=== PATIENT | male | born 1935 | race Caucasian/White ===

== ENCOUNTER 2021-11-15 08:45 | Inpatient (IN) | payer MEDICARE, OTHER ==
[2021-11-15 10:50] LABS: #Lymphocytes 0.7 thou/uL (1.20-3.40); #Monocytes 1.2 thou/uL (0.11-0.59); #Neutrophils 8.3 thou/uL (1.40-6.50); %Basophils 0.1 % (0.0-1.0); %Eosinophils 0.3 % (0.0-10.0); %Lymphocytes 6.4 % (21.0-51.0); %Monocytes 11.5 % (0.0-10.0); %Neutrophils 81.8 % (42.0-75.0); Hemoglobin 13.7 g/dL (14.0-18.0); Mean Corpuscular HGB CONC 31.4 g/dL (32.0-36.0); Mean Corpuscular Hemoglobin 30.7 pg (27.0-31.0); Mean Corpuscular Volume 97.7 fL (78.0-98.0); Platelet Count 181 thou/uL (130-400); RBC Distribution Width 11.9 % (11.5-14.5); Red Blood Cell (RBC) Count 4.47 mill/uL (4.70-6.10); White Blood Cell (WBC) Count 10.1 thou/uL (4.8-10.8)
[2021-11-15 11:05] LABS: INR-International Normal Ratio 2.3; Prothrombin Time 25.8 sec (12.0-14.7)
[2021-11-15 11:06] LABS: PTT 53.6 sec (22.9-36.1)
[2021-11-15 11:13] LABS: ALT (SGPT) 18 U/L (8-55); AST (SGOT) 55 U/L (5-34); Albumin 4.1 g/dL (3.4-4.8); Alkaline Phosphatase 88 U/L (40-110); Anion Gap 31 mmol/L (10-20); BUN (Urea Nitrogen) 27 mg/dL (8.4-25.7); Bilirubin, Total 0.4 mg/dL (0.2-1.2); CK (CPK) 1817 U/L (30-200); Calc. Creatinine Clearance 0 mL/min (70-130); Calcium 9.9 mg/dL (7.8-10.44); Carbon Dioxide 11 mmol/L (23-31); Chloride 100 mmol/L (98-107); Globulin 3.4 g/dL (2.4-3.5); Glucose 151 mg/dL (83-110); Potassium 4.8 mmol/L (3.5-5.1); Protein, Total 7.5 g/dL (5.8-8.1); Sodium 137 mmol/L (136-145)
[2021-11-15 11:38] LABS: CKMB 33.1 ng/mL (0-6.6)
[2021-11-15 12:32] LABS: Bacteria/HPF 3+ HPF (None Seen); Bilirubin Negative (Negative); Blood, Urine 3+ (Negative); Clarity Turbid (Clear); Glucose, Urine (Dipstick) 50 mg/dL (Negative); Ketone, Urine Negative (Negative); Leukocyte Negative Leu/uL (Negative); Nitrite Negative (Negative); Protein, Urine (Dipstick) 100 mg/dL (Neg-Trace); RBC/HPF 0-3 HPF (0-3); Specific Gravity, Urine 1.021 (1.002-1.036); pH, Urine 5.5 (5.0-9.0)
[2021-11-15] MEDS ORDERED: HYDROcodone/Acetaminophen 5/325 mg Tablet ONE (13:40)
[2021-11-15] MEDS ORDERED: cefTRIAXone\\ROCEPHIN 2 GM VIAL ONE (13:40)
[2021-11-15 17:10] LABS: Troponin I 0.081 ng/mL (< 0.028)
[2021-11-15 20:16] LABS: SARS-CoV-2 NAA Rapid Test DETECTED (NotDetected)
[2021-11-15] MEDS ORDERED: Dextrose 50% Abboject 50 ML SYRINGE SLOW IVP PRN (21:26)
[2021-11-15] MEDS ORDERED: Senokot S 8.6-50 MG TAB PO PRN (21:26)
[2021-11-15] MEDS ORDERED: Dextrose 5% in Water 1,000 ML IV PRN (21:26)
[2021-11-15] MEDS ORDERED: HYDROcodone/Acetaminophen 10/325 mg Tablet PO PRN (21:26)
[2021-11-15] MEDS ORDERED: GUAIFENESIN SF SOLN 200 MG/10 ML UDCUP PO PRN (21:33)
[2021-11-15] MEDS ORDERED: hydrALAZINE 20 MG/ML VIAL SLOW IVP PRN (21:33)
[2021-11-15] MEDS ORDERED: Sodium Bicarbonate 50 MEQ in Sodium Chloride 0.45% 1,000 ML IV SCH (22:15)
[2021-11-16 00:52] VITALS: BMI 23.8
[2021-11-16 06:22] LABS: ALT (SGPT) 18 U/L (8-55); AST (SGOT) 66 U/L (5-34); Albumin 3.2 g/dL (3.4-4.8); Alkaline Phosphatase 70 U/L (40-110); Anion Gap 25 mmol/L (10-20); BUN (Urea Nitrogen) 39 mg/dL (8.4-25.7); Bilirubin, Total 0.3 mg/dL (0.2-1.2); Calc. Creatinine Clearance 20 mL/min (70-130); Calcium 8.7 mg/dL (7.8-10.44); Carbon Dioxide 12 mmol/L (23-31); Chloride 105 mmol/L (98-107); Globulin 3.2 g/dL (2.4-3.5); Glucose 117 mg/dL (83-110); Potassium 4.9 mmol/L (3.5-5.1); Protein, Total 6.4 g/dL (5.8-8.1); Sodium 137 mmol/L (136-145)
[2021-11-16] MEDS ORDERED: Sodium Bicarbonate 150 MEQ in Dextrose 5% in Water 1,000 ML IV SCH (08:15)
[2021-11-16 08:57] LABS: Hemoglobin 13.6 g/dL (14.0-18.0); Mean Corpuscular HGB CONC 32.3 g/dL (32.0-36.0); Mean Corpuscular Volume 99.2 fL (78.0-98.0); Mean Platelet Volume 8.6 fL (7.4-10.4); Platelet Count 158 thou/uL (130-400); RBC Distribution Width 12.3 % (11.5-14.5); Red Blood Cell (RBC) Count 4.25 mill/uL (4.70-6.10); White Blood Cell (WBC) Count 10.7 thou/uL (4.8-10.8)
[2021-11-16] MEDS ORDERED: Cefepime 1 GM in Sodium Chloride 0.9% 100 ML IVPB SCH (09:00)
[2021-11-16] MEDS: Dexamethasone 1 MG TAB PO SCH ×2 (09:01→17:28)
[2021-11-16] MEDS: Famotidine 20 MG TAB PO SCH (09:01)
[2021-11-16] MEDS: Zinc Sulfate 220 MG CAP PO SCH (09:02)
[2021-11-16 09:50] LABS: INR-International Normal Ratio 2.9; Prothrombin Time 31.1 sec (12.0-14.7)
[2021-11-16 09:56] LABS: Albumin 3.1 g/dL (3.4-4.8); Anion Gap 28 mmol/L (10-20); BUN (Urea Nitrogen) 40 mg/dL (8.4-25.7); BUN/Creatinine Ratio 12.78; CK (CPK) 1521 U/L (30-200); Calc. Creatinine Clearance 19 mL/min (70-130); Calcium 8.8 mg/dL (7.8-10.44); Carbon Dioxide 10 mmol/L (23-31); Chloride 102 mmol/L (98-107); Glucose 141 mg/dL (83-110); Potassium 5.2 mmol/L (3.5-5.1); Sodium 135 mmol/L (136-145)
[2021-11-16 10:11] LABS: Creatinine, Urine 116.29 mg/dL (63-166)
[2021-11-16 10:23] LABS: Band 7 % (5-11); Burr Cells SLIGHT = 2-5 cells (100X) (0-1/hpf); Lymphocytes 14 % (21-51); MDiff Complete? YES; Monocytes 3 % (0-10); Neutrophil 76 % (42-75); Platelet Morphology Comment Appears Adequate; Polychromasia SLIGHT = 2-3 cells (100X) (0-2/hpf)
[2021-11-16] MEDS: cefTRIAXone\\ROCEPHIN 1 GM in Sodium Chloride 0.9% 100 ML IVPB SCH (12:49)
[2021-11-16] MEDS: Sodium Bicarbonate 150 MEQ in Dextrose 5% in Water 1,000 ML IV SCH (17:29)
[2021-11-16 19:07] LABS: Anion Gap 26 mmol/L (10-20); BUN (Urea Nitrogen) 45 mg/dL (8.4-25.7); CK (CPK) 1216 U/L (30-200); Calc. Creatinine Clearance 17 mL/min (70-130); Carbon Dioxide 11 mmol/L (23-31); Chloride 100 mmol/L (98-107); Glucose 274 mg/dL (83-110); Potassium 4.8 mmol/L (3.5-5.1); Sodium 132 mmol/L (136-145)
[2021-11-16] MEDS: Finasteride 5 MG TAB PO SCH (21:09)
[2021-11-16] MEDS: Atorvastatin Calcium 20 MG TAB PO SCH (21:09)
[2021-11-17 06:23] LABS: Prothrombin Time 42.1 sec (12.0-14.7)
[2021-11-17 06:26] LABS: INR-International Normal Ratio 4.3
[2021-11-17 06:39] LABS: Albumin 2.7 g/dL (3.4-4.8); Anion Gap 19 mmol/L (10-20); BUN (Urea Nitrogen) 50 mg/dL (8.4-25.7); BUN/Creatinine Ratio 12.99; CK (CPK) 996 U/L (30-200); Calc. Creatinine Clearance 16 mL/min (70-130); Calcium 7.9 mg/dL (7.8-10.44); Carbon Dioxide 18 mmol/L (23-31); Chloride 98 mmol/L (98-107); Glucose 288 mg/dL (83-110); Phosphorus 4.3 mg/dL (2.3-4.7); Potassium 4.2 mmol/L (3.5-5.1); Sodium 131 mmol/L (136-145)
[2021-11-17] MEDS ORDERED: Simvastatin 40 MG TAB PO SCH (09:00)
[2021-11-17] MEDS ORDERED: Sodium Chloride 0.9% 500 ML IV SCH (10:15)
[2021-11-17] MEDS: Sodium Bicarbonate 150 MEQ in Dextrose 5% in Water 1,000 ML IV SCH ×3 (10:19→21:58)
[2021-11-17] MEDS: Zinc Sulfate 220 MG CAP PO SCH (10:34)
[2021-11-17] MEDS: Dexamethasone 1 MG TAB PO SCH ×2 (10:34→18:53)
[2021-11-17] MEDS: Famotidine 20 MG TAB PO SCH (10:34)
[2021-11-17] MEDS: cefTRIAXone\\ROCEPHIN 1 GM in Sodium Chloride 0.9% 100 ML IVPB SCH (15:20)
[2021-11-17] MEDS: HumaLOG 300 UNITS/3 ML VIAL SC PRN ×2 (18:53→21:58)
[2021-11-17 18:58] LABS: Anion Gap 18 mmol/L (10-20); BUN (Urea Nitrogen) 55 mg/dL (8.4-25.7); Calc. Creatinine Clearance 15 mL/min (70-130); Calcium 7.8 mg/dL (7.8-10.44); Carbon Dioxide 24 mmol/L (23-31); Chloride 95 mmol/L (98-107); Glucose 342 mg/dL (83-110); Potassium 3.9 mmol/L (3.5-5.1); Sodium 133 mmol/L (136-145)
[2021-11-17] MEDS: Atorvastatin Calcium 20 MG TAB PO SCH (21:05)
[2021-11-17] MEDS: Finasteride 5 MG TAB PO SCH (21:05)
[2021-11-17] MEDS ORDERED: Dextrose 50% Abboject 50 ML SYRINGE SLOW IVP PRN (21:26)
[2021-11-17] MEDS ORDERED: Dextrose 5% in Water 1,000 ML IV PRN (21:26)
[2021-11-18] MEDS: HumaLOG 300 UNITS/3 ML VIAL SC PRN ×3 (05:16→16:40)
[2021-11-18 06:20] LABS: #Lymphocytes 0.5 thou/uL (1.20-3.40); #Monocytes 0.3 thou/uL (0.11-0.59); #Neutrophils 8.2 thou/uL (1.40-6.50); %Eosinophils 0.1 % (0.0-10.0); %Lymphocytes 5.1 % (21.0-51.0); %Monocytes 3.7 % (0.0-10.0); %Neutrophils 91.1 % (42.0-75.0); Mean Corpuscular HGB CONC 32.1 g/dL (32.0-36.0); Mean Corpuscular Volume 93.5 fL (78.0-98.0); Mean Platelet Volume 8.6 fL (7.4-10.4); Platelet Count 166 thou/uL (130-400); RBC Distribution Width 11.8 % (11.5-14.5); Red Blood Cell (RBC) Count 4.01 mill/uL (4.70-6.10)
[2021-11-18 06:32] LABS: INR-International Normal Ratio 3.8; Prothrombin Time 38.4 sec (12.0-14.7)
[2021-11-18 06:46] LABS: Anion Gap 21 mmol/L (10-20); BUN (Urea Nitrogen) 55 mg/dL (8.4-25.7); CK (CPK) 579 U/L (30-200); Calc. Creatinine Clearance 16 mL/min (70-130); Calcium 8.2 mg/dL (7.8-10.44); Carbon Dioxide 19 mmol/L (23-31); Chloride 95 mmol/L (98-107); Glucose 269 mg/dL (83-110); Potassium 3.7 mmol/L (3.5-5.1); Sodium 131 mmol/L (136-145)
[2021-11-18] MEDS: Dexamethasone 1 MG TAB PO SCH ×2 (09:11→16:40)
[2021-11-18] MEDS: Zinc Sulfate 220 MG CAP PO SCH (09:11)
[2021-11-18] MEDS: Famotidine 20 MG TAB PO SCH (09:12)
[2021-11-18] MEDS: Sodium Bicarbonate 150 MEQ in Dextrose 5% in Water 1,000 ML IV SCH (13:05)
[2021-11-18] MEDS: cefTRIAXone\\ROCEPHIN 1 GM in Sodium Chloride 0.9% 100 ML IVPB SCH (14:45)
[2021-11-18 15:42] LABS: Bacteria/HPF None Seen HPF (None Seen); Bilirubin Negative (Negative); Blood, Urine 2+ (Negative); Clarity Clear (Clear); Glucose, Urine (Dipstick) 300 mg/dL (Negative); Ketone, Urine Negative (Negative); Leukocyte Negative Leu/uL (Negative); Nitrite Negative (Negative); Protein, Urine (Dipstick) 30 mg/dL (Neg-Trace); RBC/HPF 0-3 HPF (0-3); Specific Gravity, Urine 1.009 (1.002-1.036); Squamous Epithelial None Seen HPF (0-3); Urobilinogen Normal mg/dL (Less than 2); WBC/HPF 0-3 HPF (0-3); pH, Urine 7.5 (5.0-9.0)
[2021-11-18 16:04] LABS: Sodium, Urine 106 mmol/L (Not Available); Urea Nitrogen, Random Urine 221 mg/dl
[2021-11-18 16:05] LABS: Creatinine, Urine 22.55 mg/dL (63-166)
[2021-11-18 16:11] LABS: Albumin 2.5 g/dL (3.4-4.8); Anion Gap 23 mmol/L (10-20); BUN (Urea Nitrogen) 53 mg/dL (8.4-25.7); BUN/Creatinine Ratio 14.48; Calc. Creatinine Clearance 17 mL/min (70-130); Calcium 7.8 mg/dL (7.8-10.44); Carbon Dioxide 18 mmol/L (23-31); Chloride 92 mmol/L (98-107); Glucose 408 mg/dL (83-110); Phosphorus 3.3 mg/dL (2.3-4.7); Potassium 3.4 mmol/L (3.5-5.1); Sodium 130 mmol/L (136-145)
[2021-11-18] MEDS: Finasteride 5 MG TAB PO SCH (20:51)
[2021-11-18] MEDS: Atorvastatin Calcium 20 MG TAB PO SCH (20:51)
[2021-11-19] MEDS: Sodium Bicarbonate 150 MEQ in Dextrose 5% in Water 1,000 ML IV SCH (05:09)
[2021-11-19] MEDS: HumaLOG 300 UNITS/3 ML VIAL SC PRN ×4 (05:24→21:59)
[2021-11-19] MEDS: Dexamethasone 1 MG TAB PO SCH ×2 (09:09→17:20)
[2021-11-19] MEDS: Famotidine 20 MG TAB PO SCH (09:10)
[2021-11-19] MEDS: Zinc Sulfate 220 MG CAP PO SCH (09:11)
[2021-11-19] MEDS: cefTRIAXone\\ROCEPHIN 1 GM in Sodium Chloride 0.9% 100 ML IVPB SCH (13:44)
[2021-11-19 14:08] LABS: Anion Gap 22 mmol/L (10-20); BUN (Urea Nitrogen) 43 mg/dL (8.4-25.7); BUN/Creatinine Ratio 14.19; Calc. Creatinine Clearance 20 mL/min (70-130); Carbon Dioxide 28 mmol/L (23-31); Chloride 88 mmol/L (98-107); Glucose 308 mg/dL (83-110); Phosphorus 2.8 mg/dL (2.3-4.7); Potassium 3.6 mmol/L (3.5-5.1); Sodium 134 mmol/L (136-145)
[2021-11-19] MEDS: Sodium Chloride 0.9% 1,000 ML IV SCH (17:23)
[2021-11-19] MEDS: Finasteride 5 MG TAB PO SCH (20:12)
[2021-11-19] MEDS: Atorvastatin Calcium 20 MG TAB PO SCH (20:12)
[2021-11-20] MEDS: Sodium Chloride 0.9% 1,000 ML IV SCH ×2 (00:18→10:40)
[2021-11-20] MEDS: HumaLOG 300 UNITS/3 ML VIAL SC PRN ×3 (06:06→20:28)
[2021-11-20] MEDS: Zinc Sulfate 220 MG CAP PO SCH (10:40)
[2021-11-20] MEDS: Famotidine 20 MG TAB PO SCH (10:40)
[2021-11-20] MEDS: Dexamethasone 1 MG TAB PO SCH (10:41)
[2021-11-20 12:04] LABS: Hemoglobin 12.9 g/dL (14.0-18.0); Mean Corpuscular HGB CONC 32.3 g/dL (32.0-36.0); Mean Corpuscular Hemoglobin 30.7 pg (27.0-31.0); Mean Corpuscular Volume 95.2 fL (78.0-98.0); Mean Platelet Volume 8.9 fL (7.4-10.4); Platelet Count 202 thou/uL (130-400); RBC Distribution Width 11.6 % (11.5-14.5); Red Blood Cell (RBC) Count 4.21 mill/uL (4.70-6.10); White Blood Cell (WBC) Count 11.5 thou/uL (4.8-10.8)
[2021-11-20 12:13] LABS: Anion Gap 17 mmol/L (10-20); BUN (Urea Nitrogen) 42 mg/dL (8.4-25.7); BUN/Creatinine Ratio 19.63; Calc. Creatinine Clearance 28 mL/min (70-130); Calcium 7.8 mg/dL (7.8-10.44); Carbon Dioxide 27 mmol/L (23-31); Chloride 93 mmol/L (98-107); Glucose 202 mg/dL (83-110); Phosphorus 2.5 mg/dL (2.3-4.7); Sodium 134 mmol/L (136-145)
[2021-11-20 12:26] LABS: CK (CPK) 204 U/L (30-200)
[2021-11-20 12:44] LABS: Band 6 % (5-11); Lymphocytes 1 % (21-51); MDiff Complete? YES; Monocytes 8 % (0-10); Neutrophil 84 % (42-75); Ovalocytes SLIGHT = 2-5 cells (100X) (0-1/hpf); Platelet Morphology Comment Appears Adequate; Polychromasia SLIGHT = 2-3 cells (100X) (0-2/hpf); Reactive Lymphocytes 1 % (0-10)
[2021-11-20] MEDS ORDERED: Potassium Chloride 20 MEQ TAB PO SCH (13:15)
[2021-11-20] MEDS: cefTRIAXone\\ROCEPHIN 1 GM in Sodium Chloride 0.9% 100 ML IVPB SCH (13:50)
[2021-11-20 16:43] LABS: INR-International Normal Ratio 2.2; Prothrombin Time 24.4 sec (12.0-14.7)
[2021-11-20 16:53] LABS: Magnesium 1.1 mg/dL (1.6-2.6)
[2021-11-20] MEDS ORDERED: Magnesium Sulfate 4 GM in Sodium Chloride 0.9% 250 ML 250 ML IVPB SCH (19:30)
[2021-11-20] MEDS: Atorvastatin Calcium 20 MG TAB PO SCH (20:26)
[2021-11-20] MEDS: Finasteride 5 MG TAB PO SCH (20:27)
[2021-11-21 06:16] LABS: Albumin 2.9 g/dL (3.4-4.8); Anion Gap 19 mmol/L (10-20); BUN (Urea Nitrogen) 41 mg/dL (8.4-25.7); BUN/Creatinine Ratio 23.56; Calc. Creatinine Clearance 35 mL/min (70-130); Calcium 8.1 mg/dL (7.8-10.44); Carbon Dioxide 22 mmol/L (23-31); Chloride 100 mmol/L (98-107); Glucose 249 mg/dL (83-110); Magnesium 2.2 mg/dL (1.6-2.6); Phosphorus 2.2 mg/dL (2.3-4.7); Potassium 3.2 mmol/L (3.5-5.1); Sodium 138 mmol/L (136-145)
[2021-11-21] MEDS ORDERED: Potassium Chloride 20 MEQ TAB PO SCH (08:00)
[2021-11-21] MEDS: Famotidine 20 MG TAB PO SCH (08:35)
[2021-11-21] MEDS: Zinc Sulfate 220 MG CAP PO SCH (08:36)
[2021-11-21] MEDS ORDERED: glipiZIDE 5 MG TAB PO SCH (10:00)
[2021-11-21 13:13] VITALS: BP 137/73; TEMP 98
[2021-11-22] MEDS ORDERED: glipiZIDE 5 MG TAB PO SCH (07:30)
[2021-11-22] MEDS ORDERED: Ascorbic Acid 500 mg Chewable Tablet PO SCH (09:00)
== END 2021-11-21 14:49 | disposition short-term general hospital (02) | DRG 177 ==
LOC: ERS 08:45 → ERHOLD 16:37 → 2SW 23:42 → OBSVTOIN 11-16 15:59
PROVIDERS: ADMIT Internal Medicine; ATTEND Internal Medicine
PROC: 8E0ZXY6 Isolation (ICD-10-PCS; principal; 2021-11-16)
DX: U07.1 COVID-19 (principal); J12.82 Pneumonia due to coronavirus disease 2019; N17.0 Acute kidney failure with tubular necrosis; E87.2 Acidosis; N18.4 Chronic kidney disease, stage 4 (severe); E87.1 Hypo-osmolality and hyponatremia; N40.0 Benign prostatic hyperplasia without lower urinary tract symptoms; E78.5 Hyperlipidemia, unspecified; E11.22 Type 2 diabetes mellitus with diabetic chronic kidney disease; I12.9 Hypertensive chronic kidney disease with stage 1 through stage 4 chronic kidney disease, or unspecified chronic kidney disease; E11.51 Type 2 diabetes mellitus with diabetic peripheral angiopathy without gangrene; E87.5 Hyperkalemia; T79.6XXA Traumatic ischemia of muscle, initial encounter; W19.XXXA Unspecified fall, initial encounter; E87.70 Fluid overload, unspecified; G30.9 Alzheimer's disease, unspecified; I48.0 Paroxysmal atrial fibrillation; F02.80 Dementia in other diseases classified elsewhere, unspecified severity, without behavioral disturbance, psychotic disturbance, mood disturbance, and anxiety; E88.09 Other disorders of plasma-protein metabolism, not elsewhere classified; E83.42 Hypomagnesemia; E83.39 Other disorders of phosphorus metabolism; Z88.8 Allergy status to other drugs, medicaments and biological substances; Z79.82 Long term (current) use of aspirin; Z79.899 Other long term (current) drug therapy; Z85.46 Personal history of malignant neoplasm of prostate; Z89.511 Acquired absence of right leg below knee; Z98.890 Other specified postprocedural states; Z87.891 Personal history of nicotine dependence
CPT/HCPCS: 0240U; 36415; 36416; 51701; 70450; 71045; 72125; 72131; 72170; 76770; 80048; 80053; 80069; 81001; 81003; 81015; 82550; 82553; 82570; 83735; 83880; 84156; 84300; 84484; 84540; 85007; 85025; 85027; 85610; 85730; 87086; 93005; 96365; 96366; 96376; G0378; J0696; J1815; J3475; J3490; J7030; J7050; J7070; J8540

== ENCOUNTER 2021-11-22 23:15 | Observation (INO) | payer MEDICARE ==
[2021-11-23] MEDS ORDERED: Dextrose 5% in Water 1,000 ML IV PRN (00:32)
[2021-11-23] MEDS ORDERED: Dextrose 50% Abboject 50 ML SYRINGE SLOW IVP PRN (00:32)
[2021-11-23] MEDS ORDERED: Ondansetron PF 4 MG/2 ML Vial IVP PRN (00:32)
[2021-11-23] MEDS ORDERED: HumaLOG 300 UNITS/3 ML VIAL SC PRN ×2 (00:32)
[2021-11-23] MEDS ORDERED: Acetaminophen 325 MG TAB PO PRN (00:32)
[2021-11-23] MEDS ORDERED: Ziprasidone 20 MG VIAL IM PRN (00:45)
[2021-11-23 00:55] LABS: CKMB 1.2 ng/mL (0-6.6)
[2021-11-23] MEDS ORDERED: Sterile Water 10 ML VIAL FS PRN (01:00)
[2021-11-23] MEDS ORDERED: Potassium Phosphate 30 MMOL in Sodium Chloride 0.9% 500 ML IVPB SCH (01:00)
[2021-11-23 05:35] LABS: Band 3 % (5-11); Hemoglobin 13.2 g/dL (14.0-18.0); Hypochromia SLIGHT = 6-15 cells (100X) (0-5/hpf); Lymphocytes 21 % (21-51); MDiff Complete? YES; Mean Corpuscular Hemoglobin 30.9 pg (27.0-31.0); Mean Corpuscular Volume 96.5 fL (78.0-98.0); Mean Platelet Volume 8.7 fL (7.4-10.4); Monocytes 2 % (0-10); Neutrophil 74 % (42-75); Platelet Count 210 thou/uL (130-400); Platelet Morphology Comment Appears Adequate; RBC Distribution Width 11.7 % (11.5-14.5); Red Blood Cell (RBC) Count 4.28 mill/uL (4.70-6.10); White Blood Cell (WBC) Count 9.3 thou/uL (4.8-10.8)
[2021-11-23 05:40] LABS: INR-International Normal Ratio 2.6; Prothrombin Time 28.1 sec (12.0-14.7)
[2021-11-23 05:45] LABS: ALT (SGPT) 27 U/L (8-55); AST (SGOT) 28 U/L (5-34); Albumin 2.8 g/dL (3.4-4.8); Alkaline Phosphatase 84 U/L (40-110); Anion Gap 14 mmol/L (10-20); BUN (Urea Nitrogen) 35 mg/dL (8.4-25.7); Calc. Creatinine Clearance 0 mL/min (70-130); Calcium 8.5 mg/dL (7.8-10.44); Carbon Dioxide 23 mmol/L (23-31); Chloride 104 mmol/L (98-107); Globulin 3.5 g/dL (2.4-3.5); Glucose 252 mg/dL (83-110); Potassium 3.4 mmol/L (3.5-5.1); Protein, Total 6.3 g/dL (5.8-8.1); Sodium 138 mmol/L (136-145)
[2021-11-23] MEDS ORDERED: Lorazepam 2 MG/ML VIAL ONE (08:40)
[2021-11-23] MEDS: glipiZIDE 5 MG TAB PO SCH (09:44)
[2021-11-23 10:01] LABS: Bacteria/HPF Rare-Few HPF (None Seen); Bilirubin Negative (Negative); Blood, Urine Trace (Negative); Clarity Clear (Clear); Glucose, Urine (Dipstick) Greater than 1000 mg/dL (Negative); Ketone, Urine Negative (Negative); Leukocyte Negative Leu/uL (Negative); Nitrite Negative (Negative); Protein, Urine (Dipstick) 70 mg/dL (Neg-Trace); RBC/HPF 0-3 HPF (0-3); Specific Gravity, Urine 1.021 (1.002-1.036); Squamous Epithelial 0-3 HPF (0-3); Urobilinogen Normal mg/dL (Less than 2); WBC/HPF 0-3 HPF (0-3); pH, Urine 6.5 (5.0-9.0)
[2021-11-23 10:02] LABS: Urine Culture Reflex No No
[2021-11-23] MEDS ORDERED: Zinc Sulfate 220 MG CAP ONE (10:14)
[2021-11-23] MEDS ORDERED: Ascorbic Acid 500 mg Chewable Tablet ONE (10:14)
[2021-11-23] MEDS: Ascorbic Acid 500 mg Chewable Tablet PO SCH (11:00)
[2021-11-23] MEDS: Cefdinir 300 MG CAP PO SCH ×2 (11:00→20:59)
[2021-11-23] MEDS: Zinc Sulfate 220 MG CAP PO SCH (11:00)
[2021-11-23] MEDS: Furosemide 20 MG TAB PO SCH (11:00)
[2021-11-23] MEDS ORDERED: Sterile Water 10 ML ONE (15:04)
[2021-11-23] MEDS ORDERED: Ziprasidone 20 MG VIAL ONE (15:04)
[2021-11-23] MEDS ORDERED: Warfarin Sodium 2.5 MG TAB PO SCH (17:00)
[2021-11-23] MEDS ORDERED: Warfarin Sodium 5 MG TAB PO SCH (17:00)
[2021-11-23] MEDS: Atorvastatin Calcium 20 MG TAB PO SCH (20:59)
[2021-11-23] MEDS: Finasteride 5 MG TAB PO SCH (20:59)
[2021-11-24 07:45] LABS: #Eosinphils 0.1 thou/uL (0.0-0.7); #Lymphocytes 0.6 thou/uL (1.20-3.40); #Monocytes 0.4 thou/uL (0.11-0.59); #Neutrophils 7.7 thou/uL (1.40-6.50); %Eosinophils 0.9 % (0.0-10.0); %Lymphocytes 6.8 % (21.0-51.0); %Monocytes 4.6 % (0.0-10.0); %Neutrophils 87.7 % (42.0-75.0); Hemoglobin 13.8 g/dL (14.0-18.0); Mean Corpuscular HGB CONC 32.3 g/dL (32.0-36.0); Mean Corpuscular Hemoglobin 31.3 pg (27.0-31.0); Mean Corpuscular Volume 96.7 fL (78.0-98.0); Mean Platelet Volume 8.6 fL (7.4-10.4); Platelet Count 196 thou/uL (130-400); Red Blood Cell (RBC) Count 4.41 mill/uL (4.70-6.10); White Blood Cell (WBC) Count 8.8 thou/uL (4.8-10.8)
[2021-11-24 08:03] LABS: INR-International Normal Ratio 3.2; Prothrombin Time 33.1 sec (12.0-14.7)
[2021-11-24 08:07] LABS: Anion Gap 16 mmol/L (10-20); BUN (Urea Nitrogen) 29 mg/dL (8.4-25.7); Calc. Creatinine Clearance 45 mL/min (70-130); Calcium 8.7 mg/dL (7.8-10.44); Carbon Dioxide 24 mmol/L (23-31); Chloride 104 mmol/L (98-107); Glucose 226 mg/dL (83-110); Magnesium 1.4 mg/dL (1.6-2.6); Potassium 3.5 mmol/L (3.5-5.1); Sodium 140 mmol/L (136-145)
[2021-11-24] MEDS ORDERED: Magnesium Sulfate 4 GM in Sodium Chloride 0.9% 250 ML 250 ML IVPB SCH (09:30)
[2021-11-24] MEDS: glipiZIDE 5 MG TAB PO SCH (10:13)
[2021-11-24] MEDS: Ascorbic Acid 500 mg Chewable Tablet PO SCH ×2 (10:13→10:25)
[2021-11-24] MEDS: Cefdinir 300 MG CAP PO SCH ×2 (10:14→21:26)
[2021-11-24] MEDS: Furosemide 20 MG TAB PO SCH (10:14)
[2021-11-24] MEDS: Zinc Sulfate 220 MG CAP PO SCH (10:14)
[2021-11-24] MEDS: Finasteride 5 MG TAB PO SCH (21:26)
[2021-11-24] MEDS: Atorvastatin Calcium 20 MG TAB PO SCH (21:26)
[2021-11-25] MEDS: glipiZIDE 5 MG TAB PO SCH (09:03)
[2021-11-25] MEDS: Cefdinir 300 MG CAP PO SCH ×2 (09:03→20:27)
[2021-11-25] MEDS: Ascorbic Acid 500 mg Chewable Tablet PO SCH (09:03)
[2021-11-25 11:34] VITALS: BMI 22.3
[2021-11-25 12:04] LABS: #Eosinphils 0.1 thou/uL (0.0-0.7); #Lymphocytes 0.9 thou/uL (1.20-3.40); #Monocytes 0.5 thou/uL (0.11-0.59); #Neutrophils 8.1 thou/uL (1.40-6.50); %Basophils 0.2 % (0.0-1.0); %Eosinophils 0.6 % (0.0-10.0); %Lymphocytes 9.2 % (21.0-51.0); %Monocytes 5.7 % (0.0-10.0); %Neutrophils 84.2 % (42.0-75.0); Mean Corpuscular HGB CONC 32.3 g/dL (32.0-36.0); Mean Corpuscular Volume 99.1 fL (78.0-98.0); Mean Platelet Volume 9.3 fL (7.4-10.4); Platelet Count 215 thou/uL (130-400); RBC Distribution Width 12.2 % (11.5-14.5); Red Blood Cell (RBC) Count 4.08 mill/uL (4.70-6.10); White Blood Cell (WBC) Count 9.6 thou/uL (4.8-10.8)
[2021-11-25 12:14] LABS: Prothrombin Time 40.9 sec (12.0-14.7)
[2021-11-25 12:18] LABS: INR-International Normal Ratio 4.1
[2021-11-25 12:24] LABS: Anion Gap 16 mmol/L (10-20); BUN (Urea Nitrogen) 26 mg/dL (8.4-25.7); Calc. Creatinine Clearance 58 mL/min (70-130); Calcium 8.5 mg/dL (7.8-10.44); Carbon Dioxide 20 mmol/L (23-31); Chloride 106 mmol/L (98-107); Glucose 197 mg/dL (83-110); Magnesium 1.7 mg/dL (1.6-2.6); Potassium 3.4 mmol/L (3.5-5.1); Sodium 139 mmol/L (136-145)
[2021-11-25] MEDS ORDERED: Phytonadione 10 MG/ML AMP PO SCH (12:45)
[2021-11-25] MEDS ORDERED: Phytonadione 5 MG TAB PO SCH (13:30)
[2021-11-25] MEDS: Atorvastatin Calcium 20 MG TAB PO SCH (20:27)
[2021-11-25] MEDS: Finasteride 5 MG TAB PO SCH (20:29)
[2021-11-26 05:04] LABS: #Eosinphils 0.1 thou/uL (0.0-0.7); #Lymphocytes 0.8 thou/uL (1.20-3.40); #Monocytes 0.7 thou/uL (0.11-0.59); #Neutrophils 8.3 thou/uL (1.40-6.50); %Basophils 0.1 % (0.0-1.0); %Eosinophils 0.8 % (0.0-10.0); %Lymphocytes 8.4 % (21.0-51.0); %Monocytes 6.7 % (0.0-10.0); %Neutrophils 84.1 % (42.0-75.0); Hemoglobin 13.8 g/dL (14.0-18.0); Mean Corpuscular HGB CONC 31.9 g/dL (32.0-36.0); Mean Corpuscular Hemoglobin 31.2 pg (27.0-31.0); Mean Corpuscular Volume 97.9 fL (78.0-98.0); Mean Platelet Volume 8.8 fL (7.4-10.4); Platelet Count 174 thou/uL (130-400); RBC Distribution Width 12.2 % (11.5-14.5); Red Blood Cell (RBC) Count 4.42 mill/uL (4.70-6.10); White Blood Cell (WBC) Count 9.9 thou/uL (4.8-10.8)
[2021-11-26 05:13] LABS: INR-International Normal Ratio 2.7; Prothrombin Time 29.4 sec (12.0-14.7)
[2021-11-26 05:28] LABS: Anion Gap 14 mmol/L (10-20); BUN (Urea Nitrogen) 24 mg/dL (8.4-25.7); Calc. Creatinine Clearance 58 mL/min (70-130); Calcium 8.5 mg/dL (7.8-10.44); Carbon Dioxide 23 mmol/L (23-31); Chloride 105 mmol/L (98-107); Glucose 178 mg/dL (83-110); Magnesium 1.5 mg/dL (1.6-2.6); Potassium 3.1 mmol/L (3.5-5.1); Sodium 139 mmol/L (136-145)
[2021-11-26] MEDS: glipiZIDE 5 MG TAB PO SCH (07:25)
[2021-11-26] MEDS: Cefdinir 300 MG CAP PO SCH (07:25)
[2021-11-26] MEDS: Ascorbic Acid 500 mg Chewable Tablet PO SCH (07:25)
[2021-11-26 07:33] VITALS: TEMP 97.8
[2021-11-26] MEDS: Potassium Chloride 20 MEQ TAB PO SCH ×2 (09:07→12:12)
[2021-11-26] MEDS ORDERED: Magnesium Oxide 400 MG TAB PO SCH (10:00)
[2021-11-26 10:46] VITALS: BP 150/68
[2021-11-27] MEDS ORDERED: FLU VACC QS2021-22(65YR UP)/PF 240 MCG/0.7 ML SYRINGE IM ONE (09:00)
[2021-11-27] MEDS ORDERED: Warfarin Sodium 1.25 MG HALF.TAB PO SCH (17:00)
== END 2021-11-26 13:54 | disposition home or self-care (01) ==
LOC: ERS 23:15 → ERHOLD 11-23 00:02 → 2SW 11-23 19:37
PROVIDERS: ADMIT Internal Medicine; ATTEND Internal Medicine
DX: G93.41 Metabolic encephalopathy (principal); U07.1 COVID-19; J12.82 Pneumonia due to coronavirus disease 2019; E87.6 Hypokalemia; E83.42 Hypomagnesemia; E88.09 Other disorders of plasma-protein metabolism, not elsewhere classified; R79.1 Abnormal coagulation profile; G30.9 Alzheimer's disease, unspecified; F02.80 Dementia in other diseases classified elsewhere, unspecified severity, without behavioral disturbance, psychotic disturbance, mood disturbance, and anxiety; I48.0 Paroxysmal atrial fibrillation; E11.65 Type 2 diabetes mellitus with hyperglycemia; I12.9 Hypertensive chronic kidney disease with stage 1 through stage 4 chronic kidney disease, or unspecified chronic kidney disease; E11.22 Type 2 diabetes mellitus with diabetic chronic kidney disease; N18.9 Chronic kidney disease, unspecified; N17.0 Acute kidney failure with tubular necrosis; E11.51 Type 2 diabetes mellitus with diabetic peripheral angiopathy without gangrene; Z85.46 Personal history of malignant neoplasm of prostate; Z87.891 Personal history of nicotine dependence; Z66 Do not resuscitate; Z79.01 Long term (current) use of anticoagulants; Z79.84 Long term (current) use of oral hypoglycemic drugs; Z79.899 Other long term (current) drug therapy; Z88.8 Allergy status to other drugs, medicaments and biological substances; Z89.511 Acquired absence of right leg below knee
CPT/HCPCS: 71045; 73590; 80048 ×3; 80053; 81001; 82553; 82962 ×4; 83735 ×3; 84484; 85007; 85025 ×3; 85027; 85610 ×4; 93923; 96372; 96374; 96375 ×2; 99285; G0378 ×5; 36415; 36416; J1815; J2060; J3475; J3486; J7030; J7050